=== PATIENT | male | born 1975 | race Caucasian/White ===

== ENCOUNTER 2020-03-22 09:24 | Outpatient (CLI) | payer OTHER ==
--- NOTE | 2020-03-22 10:53 | MRI ---
MR the lumbar spine without contrast INDICATION: Low back pain with left lower extremity radiculopathy COMPARISON: None. TECHNIQUE: Multiplanar multisequence MR images were obtained of lumbar spine without IV contrast. FINDINGS: Bone marrow: Bone marrow signal intensity appears within normal limits. Distal spinal cord and conus: Normal. The conus seen to terminate at T12. Visualized retroperitoneum and paraspinal soft tissues: Normal. Vertebral levels: L5-S1: There is a broad-based disc bulge with [id number] facet joint degenerative change induci ng moderate left neural foraminal narrowing.. L4-5: There is a broad-based disc bulge with a superimposed central to left paracentral, caudad exten ding, disc extrusion causing severe narrowing of the left lateral recess with probable impingement of the traversing left L5 nerve root. The extrusion measures 1.4 x 1.3 cm in its greatest mediolatera l and craniocaudad dimensions respectively. There is moderate central canal narrowing at this level due to the extrusion as well as facet hypertrophy and a broad-based bulge. There is mild bilateral ne ural foraminal narrowing due to facet hypertrophy and broad-based bulge at L4-5 L3-4: There is broad-based bulge with mild facet joint degenerative change but no appreciable central canal or neural narrowing. L2-3: There is a mild broad-based bulge but no appreciable central canal or neural foraminal narrowin g. L1-L2: No appreciable central canal or neuroforaminal narrowing. T12-L1: No appreciable central canal or neuroforaminal narrowing. IMPRESSION: 1. Left central to paracentral, caudad extending, disc extrusion at L4-5 induces severe narrowing of the left lateral recess with probable contact and impingement of the traversing left L5 nerve root. The extruded disc also induces moderate central canal narrowing. There is mild neural foraminal narro wing at L4-5 due to facet hypertrophy and a broad-based bulge. 2. Moderate left neural foraminal narrowing at L5-S1.
== END 2020-03-22 09:25 | disposition home or self-care (01) ==
LOC: SCSMRI 09:24
PROVIDERS: ATTEND Internal Medicine
DX: M51.16 Intervertebral disc disorders with radiculopathy, lumbar region (principal); M54.5 Low back pain; M48.061 Spinal stenosis, lumbar region without neurogenic claudication; M48.07 Spinal stenosis, lumbosacral region
CPT/HCPCS: 72148